=== PATIENT | male | born 1955 | race Caucasian/White ===

== ENCOUNTER 2022-03-23 14:29 | Inpatient (IN) | payer BC, MEDICARE ==
[2022-03-23] MEDS ORDERED: Lidocaine 1% 10 ML MDV INJECT ONE (14:49)
[2022-03-23] MEDS ORDERED: Sodium Chloride 0.9% 10 ML Syringe FLUSH PRN (15:56)
[2022-03-23] MEDS ORDERED: HYDROmorphone 0.5 MG/0.5 ML Syringe IVPUSH ONE (15:57)
[2022-03-23 16:57] LABS: ESTIMATED GFR 82 mL/min (>60)
[2022-03-23] MEDS ORDERED: Ondansetron 4 MG Tab.DIS PO PRN (17:05)
[2022-03-23] MEDS ORDERED: Acetaminophen 325 MG Tab PO PRN (17:10)
[2022-03-23] MEDS ORDERED: Sodium Chloride 0.9% 500 ML IV ONE (17:50)
[2022-03-23] MEDS: Morphine 2 MG/ML SYRINGE IVPUSH PRN ×2 (18:42→21:07)
[2022-03-23] MEDS: Dextrose 5%-0.45% NaCl 1,000 ML IV SCH (18:42)
[2022-03-23] MEDS: Acetaminophen/oxyCODONE 325-5 MG Tab PO PRN (21:55)
[2022-03-24] MEDS: Acetaminophen/oxyCODONE 325-5 MG Tab PO PRN ×3 (02:00→19:36)
[2022-03-24] MEDS: Dextrose 5%-0.45% NaCl 1,000 ML IV SCH (02:05)
[2022-03-24] MEDS ORDERED: FLU Vacc QS2022(65UP)/MF59C/PF 60 MCG/0.5 ML Syringe IM ONE (09:00)
[2022-03-24] MEDS ORDERED: Bupivacaine 0.25% 10 ML SDV ONE (10:17)
[2022-03-24] MEDS ORDERED: Propofol 200 MG/20 ML SDV ONE (10:27)
[2022-03-24] MEDS ORDERED: Midazolam 1 MG/ML 2 ML SDV ONE (10:28)
[2022-03-24] MEDS ORDERED: Ketamine 500 mg/10 ML MDV ONE (10:28)
[2022-03-24] MEDS ORDERED: fentaNYL 100 MCG/2 ML SDV ONE (10:28)
[2022-03-24] MEDS ORDERED: Ondansetron 4 MG/2 ML SDV ONE (10:33)
[2022-03-24] MEDS ORDERED: ceFAZolin 2 GM Vial ONE (11:37)
[2022-03-24] MEDS ORDERED: ePHEDrine 50 MG/ML SDV ONE (11:48)
[2022-03-24] MEDS ORDERED: Lactated Ringers 1,000 ML ONE (12:49)
[2022-03-24] MEDS ORDERED: fentaNYL 100 MCG/2 ML SDV IVPUSH PRN (12:56)
[2022-03-24] MEDS ORDERED: Ondansetron 4 MG/2 ML SDV IVPUSH PRN (12:56)
[2022-03-24] MEDS ORDERED: HYDROmorphone 0.5 MG/0.5 ML Syringe IVPUSH PRN (12:56)
[2022-03-24] MEDS ORDERED: Ketorolac 30 MG/ML SDV ONE (13:06)
[2022-03-24] MEDS ORDERED: Cyclobenzaprine 10 MG Tab PO PRN (13:23)
[2022-03-25] MEDS: Acetaminophen/oxyCODONE 325-5 MG Tab PO PRN ×2 (07:21→12:56)
[2022-03-25] MEDS ORDERED: Enoxaparin 40 MG/0.4 ML Syringe SUBCUT SCH (09:00)
[2022-03-25] MEDS ORDERED: Aspirin 325 MG Tab.EC PO SCH (09:00)
== END 2022-03-25 13:20 | disposition home or self-care (01) | DRG 482 ==
LOC: JD.ED 14:29 → JD.MS 17:05
PROVIDERS: ADMIT Pediatrics; ATTEND Internal Medicine
PROC: 0QS636Z Reposition Right Upper Femur with Intramedullary Internal Fixation Device, Percutaneous Approach (ICD-10-PCS; principal; 2022-03-24)
PROC: 3E02340 Introduction of Influenza Vaccine into Muscle, Percutaneous Approach (ICD-10-PCS; 2022-03-24)
DX: S72.001A Fracture of unspecified part of neck of right femur, initial encounter for closed fracture (principal); S61.212A Laceration without foreign body of right middle finger without damage to nail, initial encounter; S61.213A Laceration without foreign body of left middle finger without damage to nail, initial encounter; W19.XXXA Unspecified fall, initial encounter; I45.10 Unspecified right bundle-branch block; F17.210 Nicotine dependence, cigarettes, uncomplicated; Y92.812 Truck as the place of occurrence of the external cause; Z79.82 Long term (current) use of aspirin; Z79.899 Other long term (current) drug therapy; G89.29 Other chronic pain; M54.50 Low back pain, unspecified; Z23 Encounter for immunization
CPT/HCPCS: 12002; 36415; 71045; 73502; 80053; 85025; 93005; 96374; 99285; J1170; 01230; 76000; 76000-26; 86140; 87641; 97110-GP; 97116-GP; 97161-GP; 97166-GO; 97535-GO; A9270-GY; C1713; C1776; J0690; J1885; J2250; J2270; J2405; J2704; J3010; J3490; J7030; J7042; J7120

== ENCOUNTER 2024-05-16 08:46 | Day surgery (SDC) | payer MEDICARE ==
[~2024-05-16 08:46] MED LIST: Sodium Chloride 0.9% 10 ML Syringe FLUSH PRN; Sodium Chloride 0.9% 10 ML Syringe FLUSH SCH
[2024-05-16] MEDS: Acetaminophen 325 MG Tab PO PRN (09:52)
[2024-05-16] MEDS: Lactated Ringers 1,000 ML IV SCH (09:52)
[2024-05-16] MEDS: Gabapentin 300 MG Cap PO PRN (09:52)
[2024-05-16] MEDS ORDERED: Propofol 200 MG/20 ML SDV ONE (10:08)
[2024-05-16] MEDS ORDERED: Rocuronium 50 MG/5 ML Vial ONE (10:08)
[2024-05-16] MEDS ORDERED: Lidocaine 1% 5 ML VIAL ONE (10:08)
[2024-05-16] MEDS ORDERED: Midazolam 1 MG/ML 2 ML SDV ONE (10:09)
[2024-05-16] MEDS ORDERED: fentaNYL 250 MCG/5 ML SDV ONE (10:09)
[2024-05-16] MEDS ORDERED: cefOXitin 2 GM Vial ONE (10:13)
[2024-05-16] MEDS ORDERED: Ondansetron 4 MG/2 ML SDV ONE (10:54)
[2024-05-16] MEDS ORDERED: Ketorolac 30 MG/ML SDV ONE (10:54)
[2024-05-16] MEDS ORDERED: Dexamethasone 4 MG/ML 5 ML MDV ONE (10:54)
[2024-05-16] MEDS ORDERED: ceFAZolin 2 GM Vial ONE (11:01)
[2024-05-16] MEDS ORDERED: ePHEDrine 50 MG/ML SDV ONE (11:02)
[2024-05-16] MEDS ORDERED: Lactated Ringers 1,000 ML ONE (11:04)
[2024-05-16] MEDS: EPINEPHrine 1 MG/ML SDV ONE (11:04)
[2024-05-16] MEDS: Bupivacaine 0.5% 30 ML SDV ONE (11:04)
[2024-05-16] MEDS: Lidocaine 1% 30 ML SDV ONE (11:04)
[2024-05-16] MEDS ORDERED: Glycopyrrolate 0.2 MG/ML 2 ML SDV ONE (11:28)
[2024-05-16] MEDS ORDERED: Neostigmine Methylsulfate 10 MG/10 ML MDV ONE (11:28)
[2024-05-16] MEDS ORDERED: fentaNYL 100 MCG/2 ML SDV IVPUSH PRN (12:11)
[2024-05-16] MEDS ORDERED: Ondansetron 4 MG/2 ML SDV IVPUSH PRN (12:11)
[2024-05-16] MEDS ORDERED: HYDROmorphone 0.5 MG/0.5 ML Syringe IVPUSH PRN (12:11)
[2024-05-16] MEDS ORDERED: Acetaminophen/oxyCODONE 325-5 MG Tab PO PRN (12:38)
== END 2024-05-16 14:13 | disposition home or self-care (01) ==
LOC: JD.SDS 08:46
PROVIDERS: ATTEND Surgery
DX: K42.9 Umbilical hernia without obstruction or gangrene (principal); I10 Essential (primary) hypertension; Z79.82 Long term (current) use of aspirin; Z87.891 Personal history of nicotine dependence; Z79.899 Other long term (current) drug therapy
CPT/HCPCS: 49591; A9270; J0171; J0665; J0690; J0694; J1100; J1885; J2250; J2405; J2704; J2710; J3010; J3490; J7120; C1781

== ENCOUNTER 2024-07-24 18:33 | Emergency (ER) | payer MEDICARE, OTHER ==
[2024-07-24] MEDS: Lidocaine 1% 20 ML MDV INJECT ONE (19:37)
[2024-07-24] MEDS: Diphtheria,Pertussis(Acell),Tetanus Vaccine 0.5 ML Syringe IM ONE (19:37)
[2024-07-24] MEDS: Amoxicillin/Clavulanate K 875-125 MG Tab PO ONE (20:37)
[2024-07-24] MEDS: Acetaminophen 325 MG Tab PO ONE (20:37)
[2024-07-24] MEDS: Acetaminophen/HYDROcodone 325-5 MG Tab PO ONE (20:37)
[2024-07-24] MEDS: Ibuprofen 600 MG Tab PO ONE (20:37)
== END 2024-07-24 20:42 | disposition home or self-care (01) ==
LOC: JD.ED 18:33
DX: S62.662B Nondisplaced fracture of distal phalanx of right middle finger, initial encounter for open fracture (principal); I10 Essential (primary) hypertension; F17.210 Nicotine dependence, cigarettes, uncomplicated; Z23 Encounter for immunization; Z79.899 Other long term (current) drug therapy; W20.8XXA Other cause of strike by thrown, projected or falling object, initial encounter
CPT/HCPCS: 12001; 73140; 90471; 90715; 99283; A9270; J3490